=== PATIENT | male | born 1960 | race Caucasian/White ===

== ENCOUNTER 2019-01-03 12:45 | Emergency (ER) | payer OTHER ==
--- OUTSIDE RECORDS SUMMARY | 2019-01-03 12:47 | XMS REPORT ---
:1960 [facility] Address [address] [place] [address] Dr. [address] [place] [id number] Care Team Providers Name Role Phone DR JAILENE GOMEZ Unavailable Unavailable Problems This patient has no known problems. Allergies, Adverse Reactions, Alerts This patient has no known allergies or adverse reactions. Medications This patient has no known medications. Encounters Start End Encounter Admission Attending Care Care Encounter Date/Time Date/Time Type Type Clinicians Facility Department ID 2017-12-09 2017-12-09 Outpatient C J[facility]ON [facility] [id number] 12:55:00 23:59:00 JAILENE MRI Results Test Description Test Time Test Comments Text Results Atomic Results Result Comments MRI SPINE CERVICAL W/O 2017-12-09 14:33:19 EXAM: MRI CERVICAL SPINE WITHOUT CONTRSSMR CONTRASTINDICATION: Neck painCOMPARISON: None availableTECHNIQUE: Multiplanar, multisequence noncontrast MR imaging of the cervicalspine.IV contrast: None.FINDINGS: The vertebral bodies are normal in height, alignment and signal intensity. Thefacet joints and spinous processes are normal alignment. There is mild facetjoint arthropathy. There is loss of the intervertebral disc height throughoutthe cervical spine.The posterior fossa is normal with no cerebellar tonsillar ectopia. Thecervical cord is normal in signal intensity and caliber.The prevertebral and posterior paraspinal soft tissues are normal. Thevertebral artery flow voids are present.INDIVIDUAL LEVELS:C2-C3: No spinal canal stenosis. Uncovertebral hypertrophy with mild rightneuroforaminal stenosis.C3-C4: No spinal canal stenosis. Uncovertebral hypertrophy with moderateneuroforaminal stenosis bilaterally.C4-C5: No spinal canal or neuroforaminal stenosis.C5-C6: No spinal canal or neuroforaminal stenosisC6-C7: Small posterior disc osteophyte complex measuring 2 mm. No spinal canalor neuroforaminal stenosisC7-T1: No spinal canal or neural foraminal stenosisIMPRESSION: 1. Mild discogenic disease and facet joint arthropathy throughout the cervicalspine.2. No spinal canal stenosis. No abnormal cord signal.3. Moderate neuroforaminal stenosis at C3-C4 bilaterally.LOCATION: R16
--- NOTE | 2019-01-03 13:50 | RAD REPORT ---
EXAM DESCRIPTION: RAD - Hand Right 3 View - 01/03/2019 1:44 pm CLINICAL HISTORY: Right hand pain status post injury FINDINGS: No fracture or dislocation is seen.
[2019-01-03] MEDS ORDERED: LIDOCAINE 2% MPF 5 ML VIAL ONE (13:59)
--- NOTE | 2019-01-03 14:32 | EDPHYS ---
Physician Documentation [facility] Name: Claudio Moreno Jr Age: 58 yrs Sex: Male : 1960 Arrival Date: 01/03/2019 Time: 12:46 Bed 18 Private MD: ED Physician Messi Santos HPI: 01/03 14:25 This 58 yrs old Male presents to ER via Ambulatory with complaints of Finger ma2 Injury. 14:25 Onset: The symptoms/episode began/occurred suddenly, 1 hour(s) ago. The patient has not ma2 experienced similar symptoms in the past. had metal fell on right index has crush injury and laceration, tdap utd . Historical: - Allergies: 13:05 hydrocodone bitartrate; hallucinations; hb - Immunization history:: Last tetanus immunization: 2013. - Social history:: Smoking status: Patient/guardian denies using tobacco, Patient/guardian denies using alcohol, street drugs, The patient lives with family. - Ebola Screening: : No symptoms or risks identified at this time. - Family history:: not pertinent. ROS: 14:25 Constitutional: Negative for fever, chills, and weight loss. ma2 14:25 Skin: Positive for laceration(s), Negative for diaphoresis, discoloration, acute changes. 14:25 All other systems are negative. Exam: 14:25 Constitutional: This is a well developed, well nourished patient who is awake, alert, ma2 and in no acute distress. Head/Face: Normocephalic, atraumatic. Eyes: Pupils equal round and reactive to light, extra-ocular motions intact. Lids and lashes normal. Conjunctiva and sclera are non-icteric and not injected. Cornea within normal limits. Periorbital areas with no swelling, redness, or edema. Chest/axilla: Normal chest wall appearance and motion. Nontender with no deformity. No lesions are appreciated. Cardiovascular: Regular rate and rhythm with a normal S1 and S2. No gallops, murmurs, or rubs. Normal PMI, no JVD. No pulse deficits. Respiratory: Lungs have equal breath sounds bilaterally, clear to auscultation and percussion. No rales, rhonchi or wheezes noted. No increased work of breathing, no retractions or nasal flaring. Abdomen/GI: Soft, non-tender, with normal bowel sounds. No distension or tympany. No guarding or rebound. No evidence of tenderness throughout. Skin: Warm, dry with normal turgor. Normal color with no rashes, no lesions, and no evidence of cellulitis. Neuro: Awake and alert, GCS 15, oriented to person, place, time, and situation. Cranial nerves II-XII grossly intact. Motor strength 5/5 in all extremities. Sensory grossly intact. Cerebellar exam normal. Normal gait. 14:25 Musculoskeletal/extremity: ROM: intact in all extremities, Circulation is intact in all extremities. Sensation intact. Compartment Syndrome exam of affected extremity: is normal. Tendon exam: specific tendon testing normal through active and passive range of motion Nails: normal, has crush injury and laceration of lateral part of distal phalynx of right index finger . Vital Signs: 13:03 BP 137 / 86; Pulse 72; Resp 16; Temp 97.8; Pulse Ox 98% on R/A; Pain 8/10; hb Laceration: 14:25 Wound Repair of 2cm ( 0.8in ) subcutaneous laceration to right hand. Distal ma2 neuro/vascular/tendon intact. Anesthesia: Local anesthetic administered with 10 mls of 2% lidocaine. Wound prep: Extensive cleansing with betadine with hibiclenz. Skin closed with 6 3-0 Prolene using simple sutures and sterile technique. Dressed with Bacitracin. Patient tolerated well. MDM: 13:25 Patient medically screened. ma2 14:25 Differential diagnosis: finger tip crush injury with laceration. Data reviewed: vital ma2 signs, nurses notes. Counseling: I had a detailed discussion with the patient and/or guardian regarding: the historical points, exam findings, and any diagnostic results supporting the discharge/admit diagnosis, the presence of at least one elevated blood pressure reading (>120/80) during this emergency department visit, the need for outpatient follow up. 01/03 13:05 Order name: Hand Right 3 View XRAY; Complete Time: 13:55 hb 01/03 13:35 Order name: Prolene, Sutures: 2 or 3 os; Complete Time: 13:55 ma2 01/03 13:35 Order name: Dressing - Wound; Complete Time: 14:40 ma2 01/03 13:35 Order name: Gloves, Sterile; Complete Time: 13:36 ma2 01/03 13:35 Order name: Setup Suture Tray; Complete Time: 13:36 ma2 Administered Medications: 13:55 Drug: Lidocaine (2 %) 10 ml {Note: given to Dr Santos for procedure.} Volume: 5 ml; sv Route: Infiltration; Disposition: 01/03/19 14:31 Discharged to Home. Impression: Laceration without foreign body of right hand. - Condition is Stable. - Prescriptions for Clindamycin HCl 300 mg Oral Capsule - take 1 capsule by ORAL route every 6 hours for 10 days; 40 capsule. Tylenol- Codeine #3 300-30 mg Oral Tablet - take 2 tablet by ORAL route every 6 hours As needed; 30 tablet. - Medication Reconciliation Form, Thank You Letter, Antibiotic Education, Prescription Opioid Use form. - Follow up: Private Physician; When: Tomorrow; Reason: If symptoms return, Continuance of care. Signatures: Dispatcher [employer] Zuleyka Stevens RN RN sv Baxter, Heather, RN RN hb Alzahri, Mohammad, MD MD ma2 Corrections: (The following items were deleted from the chart) 14:55 14:31 01/03/2019 14:31 Discharged to Home. Impression: Laceration without foreign body sv of right hand. Condition is Stable. Forms are Medication Reconciliation Form, Thank You Letter, Antibiotic Education, Prescription Opioid Use. Follow up: Private Physician; When: Tomorrow; Reason: If symptoms return, Continuance of care. ma2
--- NOTE | 2019-01-03 14:32 | ER ---
Nurse's Notes [facility] Name: Claudio Moreno Jr Age: 58 yrs Sex: Male : 1960 Arrival Date: 01/03/2019 Time: 12:46 Bed 18 Private MD: Diagnosis: Laceration without foreign body of right hand Presentation: 01/03 13:02 Presenting complaint: Smash injury to right middle finger from syibl folding metal deer hb stand. Transition of care: patient was not received from another setting of care. Onset of symptoms was January 03, 2019. Risk Assessment: Do you want to hurt yourself or someone else? Patient reports no desire to harm self or others. Care prior to arrival: None. 13:02 Method Of Arrival: Ambulatory hb 13:02 Acuity: LOPEZ 3 hb 13:45 Initial Sepsis Screen: Does the patient meet any 2 criteria? No. Patient's initial sv sepsis screen is negative. Does the patient have a suspected source of infection? Yes: Skin breakdown/wound. Historical: - Allergies: 13:05 hydrocodone bitartrate; hallucinations; hb - Immunization history:: Last tetanus immunization: 2013. - Social history:: Smoking status: Patient/guardian denies using tobacco, Patient/guardian denies using alcohol, street drugs, The patient lives with family. - Ebola Screening: : No symptoms or risks identified at this time. - Family history:: not pertinent. Screenin:42 Abuse screen: Denies threats or abuse. Denies injuries from another. Nutritional sv screening: No deficits noted. Tuberculosis screening: No symptoms or risk factors identified. Fall Risk None identified. Assessment: 13:45 General: Appears in no apparent distress. uncomfortable, well groomed, well developed, sv Behavior is calm, cooperative, appropriate for age. Pain: Complains of pain in palmar aspect of distal phalanx of right middle finger Pain currently is 8 out of 10 on a pain scale. Is continuous, Aggravated by increased activity. Neuro: Level of Consciousness is awake, alert, obeys commands, Oriented to person, place, time, situation, Moves all extremities. Full function Gait is steady, Speech is normal. Respiratory: Respiratory effort is even, unlabored, Respiratory pattern is regular, symmetrical. Derm: Skin is pink, warm \T\ dry. Musculoskeletal: Capillary refill < 3 seconds, Swelling present in right middle finger. Injury Description: Laceration sustained to palmar aspect of distal phalanx of right middle finger is contaminated, 2.6 to 7.5 cm long, not bleeding, a small amount of bleeding noted at this time. Vital Signs: 13:03 BP 137 / 86; Pulse 72; Resp 16; Temp 97.8; Pulse Ox 98% on R/A; Pain 8/10; hb ED Course: 12:46 Patient arrived in ED. as 13:03 Triage completed. hb 13:03 Arm band placed on. hb 13:08 Zuleyka Rubio, RN is Primary Nurse. sv 13:25 Messi Santos MD is Attending Physician. ma2 13:30 Patient has correct armband on for positive identification. Bed in low position. Call sv light in reach. Adult w/ patient. Door closed. Head of bed elevated. 13:40 Hand Right 3 View XRAY In Process Unspecified. EDMS 14:15 Assist provider with laceration repair on palmar aspect of distal phalanx of right sv middle finger that was between 2.6 to 7.5 cm using sutures. Set up tray. Performed by Messi Santos MD Patient tolerated well. Patient did not have IV access during this emergency room visit. 14:40 Dressings: non-adherent dressing x 1 right middle finger Tube gauze X 1; right middle sv finger. Administered Medications: 13:55 Drug: Lidocaine (2 %) 10 ml {Note: given to Dr Santos for procedure.} Volume: 5 ml; sv Route: Infiltration; Outcome: 14:31 Discharge ordered by . maZo 14:54 Discharged to home ambulatory, with family. sv 14:54 Condition: stable 14:54 Discharge instructions given to patient, family, Instructed on discharge instructions, follow up and referral plans. no drinking with medication, no driving heavy equipment, medication usage, wound care, Demonstrated understanding of instructions, follow-up care, medications, wound care, Prescriptions given X 2. 14:55 Patient left the ED. sv Signatures: Dispatcher [employer] EDZuleyka Easton RN RN Amanda Pacheco Heather, RN RN Messi Santos MD MD ma2
[2019-01-03] MEDS ORDERED: KETAMINE HCL 500 MG/5 ML VIAL ONE (16:21)
== END 2019-01-03 14:55 | disposition home or self-care (01) ==
LOC: ER 12:45
PROC: 0JQJ0ZZ Repair Right Hand Subcutaneous Tissue and Fascia, Open Approach (ICD-10-PCS; principal; 2019-01-03)
DX: S61.411A Laceration without foreign body of right hand, initial encounter (principal); X58.XXXA Exposure to other specified factors, initial encounter; Y93.9 Activity, unspecified; Y92.89 Other specified places as the place of occurrence of the external cause; Y99.8 Other external cause status; Z88.5 Allergy status to narcotic agent
CPT/HCPCS: 99284

== ENCOUNTER 2019-01-18 09:37 | Emergency (ER) | payer OTHER ==
--- OUTSIDE RECORDS SUMMARY | 2019-01-18 09:53 | XMS REPORT ---
:1960 [facility] Address [address] [place] [address] Dr. Mahoney [address] [place] [address] Care Team Providers Name Role Phone DR JAILENE GOMEZ Unavailable Unavailable Problems This patient has no known problems. Allergies, Adverse Reactions, Alerts This patient has no known allergies or adverse reactions. Medications This patient has no known medications. Encounters Start End Encounter Admission Attending Care Care Encounter Date/Time Date/Time Type Type Clinicians Facility Department ID 2017-12-09 2017-12-09 Outpatient C JASON [facility] [id number] 12:55:00 23:59:00 JAILENE MRI Results Test Description [...]
[2019-01-18 11:07] LABS: Absolute Lymphocytes (CBC) 2.2 K/uL (0.7-4.9); Absolute Monocytes 0.5 K/uL (0.1-1.3); Absolute Neutrophil 4.1 K/uL (1.8-8.0); Basophils % 0.8 % (0-1.3); Hematocrit 46.6 % (39.6-49.0); MPV 8.2 fL (7.6-11.3); Monocytes % 6.9 % (3.3-12.3); RBC Red Blood Cell Count 5.13 M/uL (4.33-5.43)
[2019-01-18 11:24] LABS: Potassium 3.8 mmol/L (3.5-5.1)
[2019-01-18 11:38] LABS: Urine Bacteria <20 /HPF (NONE SEEN); Urine Culture Reflex Order NOT NEEDED; Urine Mucus 3+ /HPF (NONE SEEN); Urine RBC <5 /HPF (NONE SEEN)
--- NOTE | 2019-01-18 11:57 | RAD REPORT ---
EXAM DESCRIPTION: CT - Stone Protocol - 01/18/2019 11:41 am CLINICAL HISTORY: Flank pain. FLANK PAIN COMPARISON: No comparisons TECHNIQUE: Axial images were obtained without oral or IV contrast. Lack of contrast limits solid org an and vascular assessment. The [id number] spans the entirety of the system partially obscuring uppermost abdomen and lung bases. Coronal reformatted images were obtained and reviewed. All CT scans are performed using dose optimization technique as appropriate and may include automated exposure control or mA/KV adjustment according to patient size. FINDINGS: The lower lung moss are clear. Imaged portions of the liver and spleen show no suspicious findings on non-contrast imaging. The panc reas and adrenal glands are normal. No pathologic lymphadenopathy in the abdomen or pelvis. No urinary tract stones or obstructive uropathy. No bowel obstruction, free air, free fluid or abscess. Normal appendix noted. No significant bony abnormality. IMPRESSION: No urinary tract stones or obstructive uropathy.
[2019-01-18 12:50] LABS: Urine Blood NEGATIVE (NEG); Urine Glucose 2+ (NEG); Urine Protein NEGATIVE (NEG); Urine Specific Gravity 1.025 (1.005-1.030); Urine pH 5.5 (5.0-7.0)
--- NOTE | 2019-01-18 13:15 | EDPHYS ---
Physician Documentation [facility] Name: Claudio Moreno Jr Age: 58 yrs Sex: Male : 1960 Arrival Date: 01/18/2019 Time: 09:39 Bed 19 Private MD: None, None ED Physician Marbin Tinsley HPI: 01/18 13:12 This 58 yrs old Male presents to ER via Ambulatory with complaints of Urinary kb Problem. 13:12 The patient presents with flank pain, of the right flank, urinary symptoms, dribbling kb of urine, unable to void. Onset: The symptoms/episode began/occurred this morning. Modifying factors: The symptoms are alleviated by nothing, the symptoms are aggravated by nothing. Associated signs and symptoms: The patient has no apparent associated signs or symptoms. Severity of symptoms: At their worst the symptoms were moderate, in the emergency department the symptoms are unchanged. The patient has not experienced similar symptoms in the past. The patient has been recently seen by a physician:. Pt has history of prostate problems and is supposed to have surgery next week. This morning couldn't urinate and was having suprapubic pain that radiated to right flank. . Historical: - Allergies: 09:47 hydrocodone bitartrate; hallucinations; tw2 - Home Meds: 09:47 levothyroxine 88 mcg tab 1 tab once daily [Active]; metoprolol succinate 200 mg oral tw2 Tb24 1 tab once daily [Active]; hydrochlorothiazide 12.5 mg Oral tab 1 tab once daily [Active]; metformin 500 mg Oral Tb24 1 tab once daily [Active]; doxycycline hyclate 100 mg Oral cap 1 cap every 12 hours [Active]; rosuvastatin 10 mg oral tab 1 tab once daily [Active]; aspirin 81 mg Oral chew 1 tab once daily [Active]; Vitamin B-12 1,000 mcg oral tab [Active]; - PMHx: 09:47 Hypertension; tw2 - PSHx: 09:47 Carpal Tunnel Repair; Vasectomy; tw2 - Immunization history:: Adult Immunizations. - Social history:: Smoking status: . - Ebola Screening: : Patient denies travel to an Ebola-affected area in the 21 days before illness onset. ROS: 13:11 Constitutional: Negative for fever, chills, and weight loss, Cardiovascular: Negative kb for chest pain, palpitations, and edema, Respiratory: Negative for shortness of breath, cough, wheezing, and pleuritic chest pain, MS/Extremity: Negative for injury and deformity, Skin: Negative for injury, rash, and discoloration, Neuro: Negative for headache, weakness, numbness, tingling, and seizure. 13:11 Abdomen/GI: Positive for abdominal pain, of the suprapubic area. 13:11 : Positive for flank pain, difficulty urinating. Exam: 13:12 Constitutional: This is a well developed, well nourished patient who is awake, alert, kb and in no acute distress. Head/Face: Normocephalic, atraumatic. Chest/axilla: Normal chest wall appearance and motion. Nontender with no deformity. No lesions are appreciated. Cardiovascular: Regular rate and rhythm with a normal S1 and S2. No gallops, murmurs, or rubs. Normal PMI, no JVD. No pulse deficits. Respiratory: Lungs have equal breath sounds bilaterally, clear to auscultation and percussion. No rales, rhonchi or wheezes noted. No increased work of breathing, no retractions or nasal flaring. Abdomen/GI: Soft, non-tender, with normal bowel sounds. No distension or tympany. No guarding or rebound. No evidence of tenderness throughout. Back: No spinal tenderness. No costovertebral tenderness. Full range of motion. Skin: Warm, dry with normal turgor. Normal color with no rashes, no lesions, and no evidence of cellulitis. MS/ Extremity: Pulses equal, no cyanosis. Neurovascular intact. Full, normal range of motion. Neuro: Awake and alert, GCS 15, oriented to person, place, time, and situation. Cranial nerves II-XII grossly intact. Motor strength 5/5 in all extremities. Sensory grossly intact. Cerebellar exam normal. Normal gait. Vital Signs: 09:44 BP 154 / 98; Pulse 69; Resp 17; Temp 97.8(TE); Pulse Ox 95% on R/A; Weight 88.45 kg tw2 (R); Pain 10/10; 12:00 BP 125 / 90; Pulse 66; Resp 16 S; Pulse Ox 96% on R/A; jl7 13:00 BP 121 / 89; Pulse 67; Resp 16 S; Pulse Ox 96% on R/A; jl7 MDM: 09:50 Patient medically screened. [facility] 13:04 Physician consultation: Hailey Bridges MD was called at 11:25, message left. kb 13:10 Data reviewed: Data reviewed: vital signs, nurses notes. Data interpreted: Pulse kb oximetry: on room air is 96 %. Interpretation: normal. Counseling: I had a detailed discussion with the patient and/or guardian regarding: the historical points, exam findings, and any diagnostic results supporting the discharge/admit diagnosis, lab results, radiology results, the need for outpatient follow up, a urologist, to return to the emergency department if symptoms worsen or persist or if there are any questions or concerns that arise at home. Physician consultation: Hailey Bridges MD was contacted at 13:11, regarding consult, patient's condition, and will see patient in office, States pt is awaiting clearance to have surgery. 01/18 10:15 Order name: CBC with Diff; Complete Time: 11:27 kb 01/18 10:15 Order name: Basic Metabolic Panel; Complete Time: 11:27 kb 01/18 10:14 Order name: Bladder Scanner: pre and post void; Complete Time: 10:53 kb 01/18 10:39 Order name: Urine Microscopic Only; Complete Time: 11:41 em1 01/18 11:27 Order name: CT Stone Protocol; Complete Time: 11:59 kb 01/18 11:32 Order name: Urine Dipstick--Ancillary (enter results); Complete Time: 13:15 bd 01/18 10:14 Order name: Urine Dipstick-Ancillary (obtain specimen); Complete Time: 10:53 kb 01/18 10:15 Order name: IV Start; Complete Time: 10:53 kb Administered Medications: No medications were administered Disposition: 15:38 Co-signature as Attending Physician, Marbin Tinsley MD I agree with the assessment and [facility] plan of care. Disposition: 01/18/19 13:15 Discharged to Home. Impression: Right flank pain. - Condition is Stable. - Discharge Instructions: Flank Pain, [id number]. - Medication Reconciliation Form, Thank You Letter, Antibiotic Education, Prescription Opioid Use form. - Follow up: Emergency Department; When: As needed; Reason: Worsening of condition. Follow up: Private Physician; When: 2 - 3 days; Reason: Recheck today's complaints, Continuance of care, Re-evaluation by your physician. Signatures: Dispatcher [employer] Ella Roth, LAWN CARETAKER-C LAWN CARETAKER-Marbin Mallory MD MD cha Wise, Tara, RN RN tw2 Chelo Portillo RN RN jl7 Corrections: (The following items were deleted from the chart) 13:24 13:15 01/18/2019 13:15 Discharged to Home. Impression: Right flank pain. Condition is jl7 Stable. Forms are Medication Reconciliation Form, Thank You Letter, Antibiotic Education, Prescription Opioid Use. Follow up: Emergency Department; When: As needed; Reason: Worsening of condition. Follow up: Private Physician; When: 2 - 3 days; Reason: Recheck today's complaints, Continuance of care, Re-evaluation by your physician. kb
--- NOTE | 2019-01-18 13:15 | ER ---
Nurse's Notes [facility] – [place], [place] Name: Claudio Moreno Jr Age: 58 yrs Sex: Male : 1960 Arrival Date: 01/18/2019 Time: 09:39 Bed 19 Private MD: None, None Diagnosis: Right flank pain Presentation: 01/18 09:39 Presenting complaint: Patient states: i have been seeing Dr. Bridges and he wasn't in his tw2 office, he was going to do some surgery, but after he did the scope a couple of weeks ago it has gotten worse, virtually no urine comes out, pain from not urinating, my kidneys hurt. Transition of care: patient was not received from another setting of care. Onset of symptoms was January 18, 2019. Risk Assessment: Do you want to hurt yourself or someone else? Patient reports no desire to harm self or others. Initial Sepsis Screen: Does the patient meet any 2 criteria? No. Patient's initial sepsis screen is negative. Does the patient have a suspected source of infection? No. Patient's initial sepsis screen is negative. Care prior to arrival: None. 09:39 Method Of Arrival: Ambulatory tw2 09:39 Acuity: LOPEZ 3 tw2 Triage Assessment: 09:44 General: Appears uncomfortable, Behavior is calm, cooperative, appropriate for age. tw2 Pain: Complains of pain in pelvis. Historical: - Allergies: 09:47 hydrocodone bitartrate; hallucinations; tw2 - Home Meds: 09:47 levothyroxine 88 mcg tab 1 tab once daily [Active]; metoprolol succinate 200 mg oral tw2 Tb24 1 tab once daily [Active]; hydrochlorothiazide 12.5 mg Oral tab 1 tab once daily [Active]; metformin 500 mg Oral Tb24 1 tab once daily [Active]; doxycycline hyclate 100 mg Oral cap 1 cap every 12 hours [Active]; rosuvastatin 10 mg oral tab 1 tab once daily [Active]; aspirin 81 mg Oral chew 1 tab once daily [Active]; Vitamin B-12 1,000 mcg oral tab [Active]; - PMHx: 09:47 Hypertension; tw2 - PSHx: 09:47 Carpal Tunnel Repair; Vasectomy; tw2 - Immunization history:: Adult Immunizations. - Social history:: Smoking status: . - Ebola Screening: : Patient denies travel to an Ebola-affected area in the 21 days before illness onset. Screenin:22 Abuse screen: Denies threats or abuse. Denies injuries from another. Nutritional jl7 screening: No deficits noted. Tuberculosis screening: No symptoms or risk factors identified. Fall Risk IV access (20 points). Total L[place] Fall Scale indicates No Risk (0-24 pts). Assessment: 10:00 General: Appears in no apparent distress. uncomfortable, Behavior is calm, cooperative, jl7 appropriate for age. Pain: Complains of pain in pelvis. Neuro: Level of Consciousness is awake, alert, obeys commands, Oriented to person, place, time, situation. Cardiovascular: Patient's skin is warm and dry. Respiratory: Airway is patent Respiratory effort is even, unlabored, Respiratory pattern is regular, symmetrical. GI: No signs and/or symptoms were reported involving the gastrointestinal system. : Reports inability to void. Derm: Skin is pink, warm \T\ dry. 11:00 Reassessment: Patient appears in no apparent distress at this time. No changes from jl7 previously documented assessment. Patient and/or family updated on plan of care and expected duration. Pain level reassessed. Patient is alert, oriented x 3, equal unlabored respirations, skin warm/dry/pink. 12:00 Reassessment: Patient appears in no apparent distress at this time. No changes from jl7 previously documented assessment. Patient and/or family updated on plan of care and expected duration. Pain level reassessed. Patient is alert, oriented x 3, equal unlabored respirations, skin warm/dry/pink. 13:00 Reassessment: Patient appears in no apparent distress at this time. No changes from jl7 previously documented assessment. Patient and/or family updated on plan of care and expected duration. Pain level reassessed. Patient is alert, oriented x 3, equal unlabored respirations, skin warm/dry/pink. Vital Signs: 09:44 BP 154 / 98; Pulse 69; Resp 17; Temp 97.8(TE); Pulse Ox 95% on R/A; Weight 88.45 kg tw2 (R); Pain 10/10; 12:00 BP 125 / 90; Pulse 66; Resp 16 S; Pulse Ox 96% on R/A; jl7 13:00 BP 121 / 89; Pulse 67; Resp 16 S; Pulse Ox 96% on R/A; jl7 ED Course: 09:39 Patient arrived in ED. mr 09:39 None, None is Private Physician. mr 09:44 Triage completed. tw2 09:44 Arm band placed on. tw2 09:45 Ella Rodrigues FNP-C is [facility]. kb 09:45 Marbin Tinsley MD is Attending Physician. kb 10:01 Chelo Portillo, RN is Primary Nurse. jl7 10:30 Initial lab(s) drawn, by ut, sent to lab. Urine collected: clean catch specimen, clear, jl7 Bladder scan completed. 162 ml pre void. Bladder scan completed. 145 mL post void. Inserted saline lock: 20 gauge in right antecubital area, using aseptic technique. Blood collected. 11:22 Patient has correct armband on for positive identification. Placed in gown. Bed in low jl7 position. Call light in reach. Side rails up X2. Pulse ox on. NIBP on. Warm blanket given. 11:[address] 11:35 CT completed. Patient tolerated procedure well. Patient moved to CT via wheelchair. Patient moved back from CT. 11:41 CT Stone Protocol In Process Unspecified. EDMS 13:24 No provider procedures requiring assistance completed. IV discontinued, intact, jl7 bleeding controlled, No redness/swelling at site. Pressure dressing applied. Administered Medications: No medications were administered Outcome: 13:15 Discharge ordered by . kb 13:24 Discharged to home ambulatory, with family. jl7 13:24 Condition: stable 13:24 Discharge instructions given to patient, family, Instructed on discharge instructions, follow up and referral plans. Demonstrated understanding of instructions, follow-up care. 13:24 Patient left the ED. jl7 Signatures: Dispatcher [employer] EDMS Ella Rodrigues FNP-C FNP-Fredrick Ankita PhoenixCourtney Julia Burgess, RN RN tw2 Chelo Portillo, RN RN jl7
== END 2019-01-18 13:24 | disposition home or self-care (01) ==
LOC: ER 09:37
DX: R10.9 Unspecified abdominal pain (principal); I10 Essential (primary) hypertension; Z79.82 Long term (current) use of aspirin; Z88.5 Allergy status to narcotic agent
CPT/HCPCS: 36415; 74176; 76377; 80048; 81003; 81015; 85025; 99284